=== PATIENT | female | born 1950 | race Two or more races ===

== ENCOUNTER 2019-01-18 09:01 | Emergency (ER) | payer MEDICARE, MEDICAID ==
[~2019-01-18] VITALS: Ht 149.9 cm; Wt 67.1 kg
[2019-01-18 09:17] VITALS: BP 138/63
[2019-01-18] MEDS ORDERED: IBUPROFEN 400 MG TAB PO ONE (09:45)
== END 2019-01-18 10:33 | disposition home or self-care (01) ==
LOC: ER 09:01
DX: S92.352A Displaced fracture of fifth metatarsal bone, left foot, initial encounter for closed fracture (principal); W18.39XA Other fall on same level, initial encounter; Y93.89 Activity, other specified; Y99.8 Other external cause status; Y92.89 Other specified places as the place of occurrence of the external cause
CPT/HCPCS: 73630

== ENCOUNTER 2019-02-20 08:16 | Emergency (ER) | payer MEDICARE, MEDICAID ==
[~2019-02-20] VITALS: Ht 149.9 cm; Wt 65.8 kg
[2019-02-20 09:30] LABS: Basophils # (auto) 0.1 uL; Eosinophils # (auto) 0 uL; Eosinophils % (auto) 0.5 % (0.0-7.0); Hematocrit 43.2 % (36.0-46.0); Hemoglobin 14.8 g/dL (12.2-16.2); Lymphocytes # (auto) 1.3 uL; Lymphocytes % (auto) 12.9 % (10.0-50.0); Mean Corpuscular Hemoglobin 29.5 pg (28.0-32.0); Mean Corpuscular Hgb Conc. 34.2 g/dL (32.0-36.0); Mean Corpuscular Volume 86.4 fL (80.0-100.0); Monocytes # (auto) 0.7 uL; Monocytes % (auto) 6.7 % (0.0-12.0); Neutrophils # (auto) 8.1 uL; Neutrophils % (auto) 78.9 % (37.0-80.0); Nucleated Red Blood Cells % 0.1 %; Platelet Count (auto) 180 10^3/uL (140-450); White Blood Cell 10.3 10^3/uL (4.4-10.8)
[2019-02-20] MEDS ORDERED: ONDANSETRON HCL 4 MG/2 ML VIAL IV ONE (09:30)
[2019-02-20] MEDS ORDERED: MORPHINE SULF INJ 2 MG/ML SYRINGE 1ML IV ONE (09:30)
[2019-02-20 09:33] LABS: Urine Bacteria NONE SEEN /hpf (None Seen); Urine Blood 1+ /uL (Negative); Urine Specific Gravity 1.015 (1.001-1.035); Urine WBC 3 /hpf (0 - 5)
[2019-02-20 09:44] LABS: Amylase 76 U/L (25-115); Anion Gap 7 (5-15); Blood Urea Nitrogen 17 mg/dL (7-18); Carbon Dioxide 28 mmol/L (21-32); Chloride 103 mmol/L (98-107); Glucose 165 mg/dL (74-106); Lipase 123 U/L (73-393); Magnesium 2.1 mg/dL (1.6-2.6); Potassium 3.9 mmol/L (3.5-5.1); Sodium 138 mmol/L (136-145)
[2019-02-20 09:51] LABS: Alanine Aminotransferase 23 U/L (13-56); Alkaline Phosphatase 71 U/L (45-117); Aspartate Aminotransferase 14 U/L (15-37); BUN/Creatinine Ratio 22.4; Bilirubin, Total 0.6 mg/dL (0.2-1.0); GFR African American 97 mL/min; GFR Non-African American 80 mL/min; Total Protein 7.7 g/dL (6.4-8.2)
[2019-02-20] MEDS ORDERED: SODIUM CHLORIDE 0.9% 1,000 ML IV ONE (10:06)
[2019-02-20 12:22] VITALS: BP 119/70
== END 2019-02-20 12:33 | disposition home or self-care (01) ==
LOC: ER 08:20
DX: K57.90 Diverticulosis of intestine, part unspecified, without perforation or abscess without bleeding (principal); E78.5 Hyperlipidemia, unspecified; I10 Essential (primary) hypertension
CPT/HCPCS: 36415; 74176; 80053; 81001; 82150; 83690; 83735; 84484; 85025; 93005; 94761; 96361; 96374; 96375; 99284; J2270; J2405; J7030

== ENCOUNTER 2025-03-28 21:59 | Emergency (ER) | payer MEDICARE, OTHER ==
[~2025-03-28] VITALS: Ht 170.2 cm; Wt 75.0 kg
--- NOTE | 2025-03-29 00:10 | DVH ---
CLINICAL INDICATION: fall TECHNIQUE: XY L KNEE 4V XRAY Comparison: None FINDINGS/IMPRESSION: : There is no evidence of acute fracture or dislocation. Pronounced prepatellar soft tissue swelling and edema. Soft tissues are otherwise unremarkable.
--- NOTE | 2025-03-29 00:15 | ED.PDOC ---
Musculoskeletal HPI Comments 74-year-old female brought in by EMS. Patient complaining of left knee pain. States she had a trip and fall in her backyard landing on her left knee. States she has not been able to walk on it. EMS arrived and states patient was limping walking on that leg. Patient has a swelling to the anterior left knee. Nothing makes it better, movement makes it worse. Chief Complaint: Fall Injury Time Seen by MD: 22:01 Primary Care Provider: DR. PHAM Reviewed Notes: Nurses Notes Allergies: Coded Allergies: NO KNOWN ALLERGIES (Unverified , 01/18/19) Information Source: Patient, Emergency Med Personnel Mode of Arrival: EMS Location: Left Extremity Location: Knee Past Medical History PAST MEDICAL HISTORY: High Lipids, HTN Surgical History: BTL, , Denies all surgeries JAVA LEAD ARCHITECT History: No Pertinent JAVA LEAD ARCHITECT History Family History Family History: Family hx of DM Social History Smoker: Non-Smoker Alcohol: Denies ETOH Use Drugs: Denies Drug Use Lives In: Home Constitutional: denies: chills, diaphoresis, fatigue, fever, malaise, sweats, weakness, others EENTM: denies: blurred vision, double vision, ear bleeding, ear discharge, ear drainage, ear pain, ear ringing, eye pain, eye redness, hearing loss, mouth pain, mouth swelling, nasal discharge, nose bleeding, nose congestion, nose pain, photophobia, tearing, throat pain, throat swelling, voice changes, others Respiratory: denies: cough, hemoptysis, orthopnea, SOB at rest, shortness of breath, SOB with excertion, stridor, wheezing, others Cardiovascular: denies: chest pain, dizzy spells, diaphoresis, Dyspnea on exertion, edema, irregular heart beat, left arm pain, lightheadedness, palpitations, PND, syncope, others Gastrointestinal: denies: abdomen distended, abdominal pain, blood streaked bowels, constipated, diarrhea, dysphagia, difficulty swallowing, hematemesis, melena, nausea, poor appetite, poor fluid intake, rectal bleeding, rectal pain, vomiting, others Genitourinary: denies: abnormal vagina bleeding, burning, dyspareunia, dysuria, flank pain, frequency, hematuria, incontinence, pain, , vagina discharge, urgency, others Neurological: denies: dizziness, fainting, headache, left sided numbness, left sided weakness, numbness, paresthesia, pre-existing deficit, right sided numbness, right sided weakness, seizure, speech problems, tingling, tremors, weakness, others Musculoskeletal: reports: joint pain; denies: back pain, gout, joint swelling, muscle pain, muscle stiffness, neck pain, others Physical Exam General Appearance: No Apparent Distress, Normal HEENT: Normal ENT Inspection, Pharynx Normal, TMs Normal Neck: Full Range of Motion, Non-Tender, Normal, Normal Inspection Respiratory: Chest Non-Tender, Lungs Clear, No Accessory Muscle Use, No Respiratory Distress, Normal Breath Sounds Cardiovascular: No Edema, No JVD, No Murmur, No Gallop, Normal Peripheral Pulses, Regular Rate/Rhythm Breast Exam: Deferred Gastrointestinal: No Organomegaly, Non Tender, No Pulsatile Mass, Normal Bowel Sounds, Soft Genitalia: Deferred Pelvic: Deferred Rectal: Deferred Extremities: No calf tenderness, Normal capillary refill, Normal inspection, Normal range of motion, Non-tender, No pedal edema Musculoskeletal : Location: Left Extremity Location: Knee (Positive swelling, tender to palpation, distal circulation motor skills intact) Apperance: Normal Neurologic: Alert, hazardous materials driver II-XII nml as Tested, No Motor Deficits, Normal Affect, Normal Mood, No Sensory Deficits Cerebellar Function: Normal Reflexes: Normal Skin: Dry, Normal Color, Warm Lymphatic: No Adenopathy Was a procedure done? Was a procedure done?: No Differential Diagnosis EXT Differential Diagnosis: Fracture, Sprain, Dislocation X-Ray, Labs, Meds, VS Vital Signs Date Time Temp Pulse Resp B/P (MAP) Pulse Ox O2 Delivery O2 Flow Rate FiO2 03/28/25 22:09 98.4 84 16 154/72 (99) 98 98.4 X-Ray, Labs, Meds, VS Comment Imaging: X-rays and CT scans were reviewed and interpreted by this provider, imaging shows no fractures and no pathological disease. Pending radiology review. Laboratory: Labs reviewed and interpreted by this provider. No significant abnormalities noted. Patient has prior medical visits reviewed. Med reconciliation performed Vital signs reviewed Julian wrap applied to left knee. Time of 1ST Reevaluation: 00:14 Reevaluation 1ST: Improved Patient Education/Counseling: Diagnosis, Treatment, Need For Follow Up (Follow up with the PCP in the next 2-4 days. Return to the emergency department the next 24 hours if symptoms worsen.) Family Education/Counseling: Diagnosis Departure 1 Departure Time of Disposition: 00:14 Impression: Primary Impression: Knee contusion Qualified Codes: S80.02XA - Contusion of left knee, initial encounter Additional Impression: Knee effusion Qualified Codes: M25.462 - Effusion, left knee Disposition: 01 HOME / SELF CARE / HOMELESS Condition: Fair Discharged With: Self Critical Care Note Critical Care Time?: No Stability Stability form required: No Heart Score Heart Score: Heart Score Response (Comments) Value History N/A 0 EKG N/A 0 Age N/A 0 Risk Factors N/A 0 Troponin N/A 0 Total 0 TAMMY TAVAREZ Mar 29, 2025 00:15
[2025-03-29 02:31] VITALS: BP 137/54; PULSE 63; RESP 20; TEMP 97.8; O2SAT 96
[2025-03-29 02:34] VITALS: PULSE 63; RESP 20; O2SAT 96
== END 2025-03-29 02:43 | disposition home or self-care (01) ==
LOC: EDSEX 21:59 → EDBD 21:59 → ER 21:59
DX: S80.02XA Contusion of left knee, initial encounter (principal); M25.462 Effusion, left knee; I10 Essential (primary) hypertension; E78.5 Hyperlipidemia, unspecified; Z98.51 Tubal ligation status; Z98.890 Other specified postprocedural states; W01.0XXA Fall on same level from slipping, tripping and stumbling without subsequent striking against object, initial encounter; Y93.89 Activity, other specified; Y92.89 Other specified places as the place of occurrence of the external cause; Y99.8 Other external cause status
CPT/HCPCS: 73564